=== PATIENT | female | born 1935 | race Caucasian/White ===

== ENCOUNTER 2024-10-29 11:30 | Emergency (ER) | payer MEDICARE, MEDICAID, SELFPAY ==
[2024-10-29 11:31] VITALS: BP 105/72; PULSE 94; RESP 18; TEMP 36.7; O2SAT 98; BMI 21.1
--- NOTE | 2024-10-29 12:47 | XR_ITS ---
Examination: Lumbar spine 2 views Technique one AP lateral lumbar spine 2 views Date and time: October 29, 2024 1304 hours INDICATIONS: Severe back pain today. FINDINGS: Severe osteopenia Severe thoracolumbar dextroscoliosis 35 degrees Diffuse advanced facet arthropathy No lateral is actually obliqued No lumbar fracture Mild to moderate diffuse lumbar disc narrowing IMPRESSION: Limited study Recommend repeat true lateral view of the lumbar spine Severe thoracolumbar dextroscoliosis Diffuse advanced facet arthropathy Mild to moderate diffuse lumbar disc narrowing
[2024-10-29 13:27] LABS: Collection Type, Urine Voided
[2024-10-29 13:39] LABS: Bilirubin,Urine Negative (Negative); Blood,Urine 3+ (Negative); Clarity,Urine Cloudy (Clear/Hazy); Color,Urine Yellow (Lt Yel-Yel); Culture Indicated,Urine Yes; Glucose, Urine Negative (Negative); Ketones,Urine Negative (Negative); Leukocyte Esterase,Urine Positive (Negative); Nitrite,Urine Negative (Negative); PH,Urine 6.5 (5.0-7.0); Protein,Urine 2+ (Neg - Trace); RBC,Urine 2121 /hpf (0-3); Specific Gravity,Urine 1.024 (1.001-1.035); Squamous Epithelial Cell,Urine 1 /hpf (0-5); Urobilinogen,Urine Negative mg/dL (0.0-1.0); WBC,Urine 954 /hpf (0-5)
--- NOTE | 2024-10-29 13:53 | PD.EDBACK ---
ED Back Injury Pain RME/HPI General Chief Complaint: Back Pain/Injury Stated Complaint: BACK PAIN Time Seen by Provider: 10/29/24 12:25 Source: patient Arrival date/time: 10/29/24 11:30 Limitations: no limitations RME / HPI RME / HPI Narrative: Patient is a 89-year-old female who is here today with low back pain and frequent dysuria. She denies any fevers or chills. Has no abdominal pain pain, nausea, vomiting. She has no diarrhea. She states she developed increased back pain last week after she lifted the tailgate of her truck. She denies any falls or injuries. She has no distal paresthesias. She has no other acute complaints. Related Data Home Medications ?Medication ?Instructions ?Recorded ?Confirmed cholecalciferol (vitamin D3) 25 1,000 unit PO QDAY ##0 06/10/07 04/29/18 mcg (1,000 unit) capsule (Vitamin D3) calcium carbonate (Oyster Shell 500 mg PO TID 09/19/17 04/29/18 Calcium 500) diphenhydramine HCl 25 mg capsule 25 mg PO Q4H PRN Allergic Reaction 09/19/17 04/29/18 (Allergy Relief (diphenhydramine)) omega 9-dnu-xml-fish oil 1,000 mg 1 tab PO DAILY 09/19/17 04/29/18 (120 mg-180 mg) capsule (Fish Oil) acetaminophen 500 mg tablet 500 mg PO BID PRN Pain 04/29/18 04/29/18 butalbital 50 mg-acetaminophen 300 1 cap PO Q4H PRN Pain 04/29/18 04/29/18 mg-caffeine 40 mg-codeine 30 mg cap calcium carbonate (Calcium 500) 500 mg PO TID 04/29/18 04/29/18 Previous Rx's ?Medication ?Instructions ?Recorded cephalexin 500 mg capsule 500 mg PO Q8H 7 days #21 caps 10/29/24 Allergies Allergy/AdvReac Type Severity Reaction Status Date / Time Sulfa (Sulfonamide Allergy Severe RASH Verified 10/29/24 12:26 Antibiotics) codeine Allergy Mild RASH, Verified 10/29/24 12:26 NAUSEA hydrocodone Allergy Mild RASH Verified 10/29/24 12:26 ibuprofen Allergy Mild STOMACH Verified 10/29/24 12:26 UPSET Latex, Natural Rubber Allergy Mild Rash Verified 10/29/24 12:26 milk Allergy Mild SINUS Verified 10/29/24 12:26 CONGESTION Penicillins Allergy Mild RASH Verified 10/29/24 12:26 propoxyphene Allergy Mild NAUSEA, Verified 10/29/24 12:26 HEADACHE tetracycline Allergy Mild RASH Verified 10/29/24 12:26 tramadol Allergy Mild RASH Verified 10/29/24 12:26 BEANS CORN PEAS Allergy Unknown SINUS Uncoded 10/29/24 12:26 CONGESTION Review of Systems Review of Systems Systems Reviewed: All systems reviewed, normal except as documented ED Exam General Limitations: Present no limitations General appearance: Present alert and in no apparent distress Head Head exam: Present atraumatic Eye Eye exam: Present normal appearance, PERRL and EOMI ENT ENT exam: Present normal exam, normal oropharynx and mucous membranes moist Neck Neck exam: Present normal inspection, full ROM and trachea midline Chest Chest inspection: Present normal inspection and symmetric chest wall rise Respiratory Respiratory exam: Present normal lung sounds bilaterally Cardiovascular Cardiovascular exam: Present regular rate, normal rhythm and normal heart sounds Abdominal Exam Abdominal exam: Present soft and normal bowel sounds Extremities Exam Extremities exam: Present normal inspection and full ROM Back Exam Back exam: Present normal inspection and full ROM Neurological Exam Neurological exam: Present alert and oriented X3 Psychiatric Psychiatric exam: Present normal affect and normal mood Skin Skin exam: Present warm, dry, intact and normal color Course Quality Measures none Orders Category Date Time Status XR lumbar spine 2-3V Stat Exams 10/29/24 12:47 Completed UA, C/S IF [Urinalysis, C/S if Indicated] Stat Lab 10/29/24 13:11 Completed Urine Culture Stat Lab 10/29/24 13:11 Received cephALEXin [Keflex] Med 10/29/24 13:52 Once 500 mg PO X1 ONE Vital Signs Vital signs: Vital Signs Temperature 98.0 F 10/29/24 11:31 Pulse Rate 94 10/29/24 11:31 Respiratory Rate 18 10/29/24 11:31 Blood Pressure 105/72 10/29/24 11:31 Pulse Oximetry (%) 98 10/29/24 11:31 Oxygen Delivery Method Room Air 10/29/24 11:31 Back Pain / Injury MDM Narrative MDM Narrative:: Patient is a 89-year-old female who is here today with low back pain and frequent dysuria. She denies any fevers or chills. Has no abdominal pain pain, nausea, vomiting. She has no diarrhea. She states she developed increased back pain last week after she lifted the tailgate of her truck. She denies any falls or injuries. She has no distal paresthesias. She has no other acute complaints. On exam, patient is nontoxic-appearing in no visible signs of distress. Plain films of the spine reveal no acute osseous injury. UA is consistent with significant UTI. The patient was placed on cephalexin for this. She is advised to increase oral hydration. Use. Antibiotic prescribed. Have a very low threshold for return anytime for any worsening changes. Patient data External records reviewed:: None Clinical information provided by:: patient Social determinants that could affect healthcare access:: none Patient has the following chronic illnesses:: Chronic How is presenting disease/condition affected by chronic disease/condition?: exacerbated by Evaluation data The following diagnostics were reviewed and interpreted by me:: other (specify) Lab and/or radiology exams considered but not ordered:: n/a Interpretation Summary: n/a Medications / Prescriptions Medications or Prescriptions considered but not ordered:: n/a Medication administrations:: Medication Administration History Discontinued Medications Cephalexin HCl (Cephalexin 250 Mg Capsule) 500 mg PO X1 ONE Stop: 10/29/24 13:53 See above Consultations Consultation(s) initiated? (list below): No Diagnosis Differential diagnosis back pain/injury: strain of lumbar region, pyelonephritis and thoracic back pain Most likely diagnosis given after review of the tests above:: UTI, chronic back pain Admission Indicated Admission indicated?: not indicated Admission Request Was there a request for admission?: No Disposition Plan Disposition Plan: Discharge Discharge Attestation Discharge Attestation: The patient and all family members were given an opportunity to ask questions and understood the discharge instructions. Discharge instructions specifically effects, indications for sooner follow up or return to the emergency department, and the expected course of current diagnosis. Patient condition: Stable Discharge Plan Plan Patient Disposition: HOME (Self Care) Patient condition on transfer: Stable Prescriptions/Referrals Prescriptions/Med Rec: New cephalexin 500 mg capsule 500 mg PO Q8H 7 Days Qty: 21 0RF No Action cholecalciferol (vitamin D3) [Vitamin D3] 1,000 unit Capsule 1,000 unit PO QDAY Qty: 0 Patient Comments: TAKE ONE TABLET BY MOUTH THREE TIMES A DAY calcium carbonate [Oyster Shell Calcium 500] 500 mg calcium (1,250 mg) Tablet 500 mg PO TID diphenhydramine HCl [Allergy Relief(diphenhydramin)] 25 mg Capsule 25 mg PO Q4H PRN (Reason: Allergic Reaction) omega 7-djc-xsx-fish oil [Fish Oil] 1,000 mg (120 mg-180 mg) Capsule 1 tab PO DAILY acetaminophen 500 mg Tablet 500 mg PO BID PRN (Reason: Pain) calcium carbonate [Calcium 500] 500 mg calcium (1,250 mg) Tablet 500 mg PO TID nikwyltamh-hbvkaccxhv-fwy-cod [id number] mg Capsule 1 cap PO Q4H PRN (Reason: Pain) Problem List Clinical Impression: Acute UTI Patient/Caregiver Discharge Instructions Education Materials: Urinary Tract Infections in Women Additional Instructions: - Increase oral hydration use the provided antibiotic as prescribed. We are treating you with an antibiotic called cephalexin, you need to take this every 8 hours for 1 week. - Please contact your primary doctor to schedule close follow-up appointment. - Please return to the emergency room at anytime for any worsening changes including but not limited to increased pain, fevers, nausea, or vomiting. Print Language: Vietnamese Stand Alone Forms: [employer] Info., Patient Portal Info Letter
[2024-10-29 15:13] VITALS: BP 140/73; PULSE 69; RESP 18; TEMP 36.4; O2SAT 99
== END 2024-10-29 15:44 | disposition home or self-care (01) ==
LOC: SERX 15:31
PROVIDERS: Physician Assistant Medical; Emergency Provider Emergency Medicine; PCP Family Medicine
DX: N39.0 Urinary tract infection, site not specified (principal)
CPT/HCPCS: 72100; 81001; 87077; 87086; 87186; 99282; A9270

== ENCOUNTER 2024-10-30 15:37 | Emergency (ER) | payer MEDICARE, MEDICAID, SELFPAY ==
[2024-10-30 15:39] VITALS: PULSE 92; RESP 18; O2SAT 96; BMI 18.3
--- NOTE | 2024-10-30 15:44 | PD.EDRME ---
Rapid Medical Screening Exam RME Arrival date/time: 10/30/24 15:37 Chief Complaint: General Adult/Misc Complain Time Seen by Provider: 10/30/24 15:40 RME Narrative: 89 year old female requesting medication change. She was prescribed keflex yesterday for a UTI but wants this changed to cipro. She was seen here yesterday. She is also requesting a prescription of prednisone 20 mg once daily for 7 days to take with her cipro. She has no other complaints or concerns at this time.
[2024-10-30 16:00] VITALS: BP 119/53; PULSE 66; RESP 19; TEMP 37.2; O2SAT 95
[2024-10-30 17:12] LABS: Collection Type, Urine Voided; Squamous Epithelial Cell,Urine 0 /hpf (0-5)
[2024-10-30 17:43] LABS: Bilirubin,Urine Negative (Negative); Blood,Urine 3+ (Negative); Clarity,Urine Turbid (Clear/Hazy); Glucose, Urine Negative (Negative); Ketones,Urine Negative (Negative); Leukocyte Esterase,Urine Positive (Negative); Nitrite,Urine Negative (Negative); PH,Urine 6.5 (5.0-7.0); Protein,Urine 1+ (Neg - Trace); RBC,Urine 797 /hpf (0-3); Specific Gravity,Urine 1.016 (1.001-1.035); Urobilinogen,Urine Negative mg/dL (0.0-1.0); WBC,Urine 212 /hpf (0-5)
[2024-10-30 17:50] LABS: Color,Urine Yellow (Lt Yel-Yel); Culture Indicated,Urine Yes
--- NOTE | 2024-10-30 20:13 | PD.EDFMALE ---
ED Female Urogenital RME/HPI General Chief complaint: General Adult/Misc Complain Stated complaint: WANTS ANTIOBIOTIC MEDICATION CHANGED Time Seen by Provider: 10/30/24 15:40 Arrival date/time: This is a case of 89-year-old female who came in in the emergency room due to painful urination patient was seen here yesterday and was discharged with cephalexin patient returned and refused to take the medication that was prescribed by the previous provider patient requested ciprofloxacin and stated that the Cipro is helping her patient denies any abdominal pain denies any fever or chills denies any nausea vomiting denies any flank pain or back pain Limitations: no limitations RME / HPI RME / HPI Narrative: 89 year old female requesting medication change. She was prescribed keflex yesterday for a UTI but wants this changed to cipro. She was seen here yesterday. She is also requesting a prescription of prednisone 20 mg once daily for 7 days to take with her cipro. She has no other complaints or concerns at this time. Related Data Home Medications ?Medication ?Instructions ?Recorded ?Confirmed cholecalciferol (vitamin D3) 25 1,000 unit PO QDAY ##0 06/10/07 04/29/18 mcg (1,000 unit) capsule (Vitamin D3) calcium carbonate (Oyster Shell 500 mg PO TID 09/19/17 04/29/18 Calcium 500) diphenhydramine HCl 25 mg capsule 25 mg PO Q4H PRN Allergic Reaction 09/19/17 04/29/18 (Allergy Relief (diphenhydramine)) omega 0-gez-zyk-fish oil 1,000 mg 1 tab PO DAILY 09/19/17 04/29/18 (120 mg-180 mg) capsule (Fish Oil) acetaminophen 500 mg tablet 500 mg PO BID PRN Pain 04/29/18 04/29/18 butalbital 50 mg-acetaminophen 300 1 cap PO Q4H PRN Pain 04/29/18 04/29/18 mg-caffeine 40 mg-codeine 30 mg cap calcium carbonate (Calcium 500) 500 mg PO TID 04/29/18 04/29/18 Previous Rx's ?Medication ?Instructions ?Recorded cephalexin 500 mg capsule 500 mg PO Q8H 7 days #21 caps 10/29/24 ciprofloxacin HCl 500 mg tablet 500 mg PO BID 7 days #14 tabs 10/30/24 nitrofurantoin 100 mg PO Q12H Urinary tract 10/30/24 monohydrate/macrocrystals 100 mg infection 7 days #14 caps capsule (Macrobid) Allergies Allergy/AdvReac Type Severity Reaction Status Date / Time Sulfa (Sulfonamide Allergy Severe RASH Verified 10/30/24 15:39 Antibiotics) codeine Allergy Mild RASH, Verified 10/30/24 15:39 NAUSEA hydrocodone Allergy Mild RASH Verified 10/30/24 15:39 ibuprofen Allergy Mild STOMACH Verified 10/30/24 15:39 UPSET Latex, Natural Rubber Allergy Mild Rash Verified 10/30/24 15:39 milk Allergy Mild SINUS Verified 10/30/24 15:39 CONGESTION Penicillins Allergy Mild RASH Verified 10/30/24 15:39 propoxyphene Allergy Mild NAUSEA, Verified 10/30/24 15:39 HEADACHE tetracycline Allergy Mild RASH Verified 10/30/24 15:39 tramadol Allergy Mild RASH Verified 10/30/24 15:39 BEANS CORN PEAS Allergy Unknown SINUS Uncoded 10/30/24 15:39 CONGESTION Review of Systems Review of Systems Systems Reviewed: All systems reviewed, normal except as documented Constitutional Constitutional: Reports system reviewed and no additional complaints, except as documented and Reports as per HPI Cardiovascular Cardiovascular: Reports system reviewed and no additional complaints, except as documented and Reports as per HPI Respiratory Respiratory: Reports system reviewed and no additional complaints, except as documented Gastrointestinal Gastrointestinal: Reports system reviewed and no additional complaints, except as documented and Reports as per HPI Genitourinary Genitourinary: Reports system reviewed and no additional complaints, except as documented and Reports as per HPI Neurologic Neurologic: Reports system reviewed and no additional complaints, except as documented and Reports as per HPI Past Medical History Past Medical History NEUROLOGIC: Positive Migraine; Negative Neurological Disorders or Seizures CARDIAC: Negative Cardiac Disorders or Congestive Heart Failure RESPIRATORY: Positive Pneumonia (HOSP AT 11 YRS OLD); Negative Chronic Obstructive Pulmonary Disease (COPD) GASTROINTESTINAL: Negative Gastrointestinal Disorders or Hepatitis GENITOURINARY: Negative Genitourinary Disorders or Renal Disease REPRODUCTIVE: Positive Breast Cancer (LEFT MASTECTOMY 05/19) MUSCULOSKELETAL: Positive Musculoskeletal Disorders, Arthritis and Scoliosis ENDOCRINE: Negative Endocrine Disorders, Diabetes Mellitus Type 1 or Diabetes Mellitus Type 2 HEMATOLOGIC: Negative Blood Disorders OTHER HISTORY: Positive Shingles (2000), Chicken Pox, Measles, Mumps and Breast Cancer (LEFT MASTECTOMY 05/19); Negative Autoimmune Disease, Blood Transfusions, Blood Transfusion Reaction or Anesthesia Reactions Family History FAMILY HISTORY: Positive Family Respiratory Disorders (mother), Family Gastrointestinal Problems (SISTER), Family Cancer (MOTHER (LUNG)) and Family Surgery (SISTER,FATHER); Negative Family Cardiac Disorders Surgical History SURGICAL: Positive Mastectomy (left) Social History SMOKING STATUS: Never smoker ED Exam General Limitations: Present no limitations General appearance: Present alert, in no apparent distress and other (Patient is awake alert oriented not in distress nontoxic looking well-hydrated well-nourished excellent skin turgor) Head Head exam: Present atraumatic, normocephalic and normal inspection Eye Eye exam: Present normal appearance, PERRL and EOMI ENT ENT exam: Present normal exam, normal oropharynx and mucous membranes moist Neck Neck exam: Present normal inspection, full ROM and trachea midline Chest Chest inspection: Present normal inspection and symmetric chest wall rise Respiratory Respiratory exam: Present normal lung sounds bilaterally Cardiovascular Cardiovascular exam: Present regular rate, normal rhythm and normal heart sounds Abdominal Exam Abdominal exam: Present soft and normal bowel sounds; Absent distention, tenderness, guarding, rebound, rigidity, diminished bowel sounds, hyperactive bowel sounds, hypoactive bowel sounds, organomegaly, psoas sign, obturator sign, 's sign, Rovsing's sign (Negative CVA tenderness) or tenderness at McBurney's Point Extremities Exam Extremities exam: Present normal inspection and full ROM Back Exam Back exam: Present normal inspection and full ROM Neurological Exam Neurological exam: Present alert, oriented X3, CN II-XII intact, normal gait and reflexes normal; Absent motor sensory deficit Psychiatric Psychiatric exam: Present normal affect and normal mood Skin Skin exam: Present warm, dry, intact and normal color Course Quality Measures none Orders Category Date Time Status UA, C/S IF [Urinalysis, C/S if Indicated] Stat Lab 10/30/24 17:04 Completed Urine Culture Stat Lab 10/30/24 17:04 Received Ciprofloxacin HCl [Ciprofloxacin] Med 10/30/24 20:13 Once 500 mg PO X1 ONE Vital Signs Vital signs: Vital Signs Temperature 99.0 F 10/30/24 16:00 Pulse Rate 66 10/30/24 16:00 Respiratory Rate 19 10/30/24 16:00 Blood Pressure 119/53 L 10/30/24 16:00 Pulse Oximetry (%) 95 10/30/24 16:00 Oxygen Delivery Method Room Air 10/30/24 16:00 Oxygen saturation in room air 95% Urogenital - Female MDM Narrative MDM Narrative:: This is a case of 89-year-old female who came in in the emergency room due to painful urination patient was seen here yesterday and was discharged with cephalexin patient returned and refused to take the medication that was prescribed by the previous provider patient requested ciprofloxacin and stated that the Cipro is helping her patient denies any abdominal pain denies any fever or chills denies any nausea vomiting denies any flank pain or back pain physical examination patient is awake alert oriented not in distress nontoxic looking well-hydrated well-nourished excellent skin turgor abdominal exam is benign nonsurgical no guarding no rebound no rigidity negative CVA tenderness excellent skin turgor no signs and symptoms sepsis no signs of symptoms dehydration abdominal exam is benign and no acute abdomen patient was given ciprofloxacin and was prescribed also with medication I refused to give prednisone due to age and risk of bleeding patient agreed patient will follow-up with PCP in 2 days for reevaluation return precaution to ER was also advised Patient was discharged with comfortable condition walking with stable gait. Patient verbalized no further complains explained diagnosis and answered patient question. Patient is comfortable with the proposed management plan including the need to follow up with his/her primary care physician and any specialist if applicable Discussed patient for any urgent condition or worsening sx, He/She needed to go to emergency room immediately or call 911. Patient acknowledge the responsibility to follow up as instructed and to monitor her/his symptoms. For any persistence of the symptoms for more than 3-5 days return precaution advised. Discussed the result of the test and was given printed discharge instruction Patient data External records reviewed:: [facility] previous records Clinical information provided by:: patient Social determinants that could affect healthcare access:: none Patient has the following chronic illnesses:: None How is presenting disease/condition affected by chronic disease/condition?: no chronic disease Evaluation data The following diagnostics were reviewed and interpreted by me:: lab results Lab and/or radiology exams considered but not ordered:: Reviewed Interpretation Summary: Reviewed Medications / Prescriptions Medications or Prescriptions considered but not ordered:: Given Medication administrations:: Medication Administration History Ciprofloxacin (Ciprofloxacin Hcl 250 Mg Tablet) 500 mg PO X1 ONE Stop: 10/30/24 20:14 Given Consultations Consultation(s) initiated? (list below): No Diagnosis Urogenital Female Differential Diagnosis: urinary tract infection Most likely diagnosis given after review of the tests above:: Urinary tract infection Admission Indicated Admission indicated?: not indicated Explain why admission is indicated or not indicated:: Not indicated Admission Request Was there a request for admission?: No Admission Attestation Admission request attestation: Not indicated Disposition Plan Disposition Plan: Discharge Discharge Attestation Discharge Attestation: The patient and all family members were given an opportunity to ask questions and understood the discharge instructions. Discharge instructions specifically effects, indications for sooner follow up or return to the emergency department, and the expected course of current diagnosis. Patient condition: Stable Discharge Plan Plan Patient Disposition: HOME (Self Care) Patient condition on transfer: Stable Prescriptions/Referrals Prescriptions/Med Rec: New ciprofloxacin HCl 500 mg tablet 500 mg PO BID 7 Days Qty: 14 0RF No Action cholecalciferol (vitamin D3) [Vitamin D3] 1,000 unit Capsule 1,000 unit PO QDAY Qty: 0 Patient Comments: TAKE ONE TABLET BY MOUTH THREE TIMES A DAY calcium carbonate [Oyster Shell Calcium 500] 500 mg calcium (1,250 mg) Tablet 500 mg PO TID diphenhydramine HCl [Allergy Relief(diphenhydramin)] 25 mg Capsule 25 mg PO Q4H PRN (Reason: Allergic Reaction) omega 7-rpj-ule-fish oil [Fish Oil] 1,000 mg (120 mg-180 mg) Capsule 1 tab PO DAILY acetaminophen 500 mg Tablet 500 mg PO BID PRN (Reason: Pain) calcium carbonate [Calcium 500] 500 mg calcium (1,250 mg) Tablet 500 mg PO TID axvlhpmofv-tzarwlcjoe-xni-cod [id number] mg Capsule 1 cap PO Q4H PRN (Reason: Pain) cephalexin 500 mg capsule 500 mg PO Q8H 7 Days Qty: 21 0RF nitrofurantoin monohyd/m-cryst [Macrobid] 100 mg capsule 100 mg PO Q12H 7 Days Qty: 14 0RF Rx Instructions: must administer with a meal/food Referrals: No Primary/Family,Physician [Primary Care Provider] - In 1 week Problem List Clinical Impression: Urinary tract infection Patient/Caregiver Discharge Instructions Education Materials: Urinary Tract Infections in Women, Understanding Urinary Tract ... Additional Instructions: Follow-up with your primary care physician in 2 days for reevaluation worsening symptoms or any emergent concern call 911 or go to the nearest emergency room take your medication and finish the course of antibiotic Print Language: Luxembourgish Stand Alone Forms: [employer] Info., Patient Portal Info Letter PA/MARKET ANALYST Supervising Physician PA/MARKET ANALYST Supervising Physician: DR Carey
[2024-10-30 20:25] VITALS: BP 124/66; PULSE 78; RESP 17; TEMP 36.5; O2SAT 97
[2024-10-30] MEDS: CIPROFLOXACIN HCL 250 MG TABLET 500 MG PO (20:27)
== END 2024-10-30 20:33 | disposition home or self-care (01) ==
PROVIDERS: Physician Assistant Medical; Emergency Provider Emergency Medicine
DX: N39.0 Urinary tract infection, site not specified (principal)
CPT/HCPCS: 81001; 87077; 87086; 87186; 99282; A9270